=== PATIENT | male | born 1990 | race Caucasian/White ===

== ENCOUNTER 2019-03-27 14:42 | Emergency (ER) | payer SELFPAY ==
[~2019-03-27] VITALS: Ht 177.8 cm; Wt 86.2 kg
[2019-03-27] MEDS ORDERED: DOXYCYCLINE HY100 MG PO (15:07)
== END 2019-03-27 15:25 | disposition home or self-care (01) ==
LOC: ED 14:42
DX: S61.452A Open bite of left hand, initial encounter (principal); Z88.0 Allergy status to penicillin; W54.0XXA Bitten by dog, initial encounter
CPT/HCPCS: 99283